=== PATIENT | male | born 1945 | race Hispanic/Latino ===

== ENCOUNTER 2020-10-03 13:36 | Emergency (ER) | payer MEDICARE, BC ==
[~2020-10-03] VITALS: Ht 177.8 cm; Wt 98.0 kg
[~2020-10-03 13:36] MED LIST: ARMOUR THYROID30 MG PO; ATENOLOL25 MG PO; PEPCID40 MG; PLAVIX75 MG PO; PRAVACHOL20 MG PO; RAMIPRIL2.5 MG PO
== END 2020-10-03 15:48 | disposition home or self-care (01) ==
LOC: FSED 13:57
DX: M79.602 Pain in left arm (principal); M79.89 Other specified soft tissue disorders; E78.5 Hyperlipidemia, unspecified; K21.9 Gastro-esophageal reflux disease without esophagitis; E78.00 Pure hypercholesterolemia, unspecified; Z86.73 Personal history of transient ischemic attack (TIA), and cerebral infarction without residual deficits
CPT/HCPCS: 93971; 99284

== ENCOUNTER 2021-03-09 14:28 | Emergency (ER) | payer MEDICARE, BC ==
[~2021-03-09] VITALS: Ht 177.8 cm; Wt 97.5 kg
[2021-03-09] MEDS ORDERED: LIDOCAINE 1% 5ML-MPF INJ ONE (14:45)
[2021-03-09] MEDS ORDERED: CEFTRIAXONE SOD 1 GM VIAL IM ONE (14:45)
[2021-03-09] MEDS ORDERED: IBUPROFEN 200 MG TAB PO ONE (14:45)
[2021-03-09] MEDS ORDERED: ONDANSETRON HCL 4 MG ORAL DISINTEGRATING TAB PO ONE (14:45)
[2021-03-09] MEDS ORDERED: CIPROFLOX-DEXA7.5 ML LEFT EAR (14:46)
[2021-03-09] MEDS ORDERED: IBUPROFEN IB200 MG PO (14:46)
[2021-03-09] MEDS ORDERED: CLEOCIN HCL300 MG PO (14:46)
[2021-03-09] MEDS ORDERED: CLINDAMYCIN PHOS 600 MG/ 4 ML VIAL IM ONE (15:00)
[2021-03-09] MEDS ORDERED: ONDANSETRON HCL 4 MG ORAL DISINTEGRATING TAB ONE (15:18)
[2021-03-09] MEDS ORDERED: IBUPROFEN 600 MG TAB ONE (15:19)
[2021-03-09] MEDS ORDERED: CLINDAMYCIN PHOS 300MG/2ML VIAL ONE (15:19)
== END 2021-03-09 16:20 | disposition home or self-care (01) ==
LOC: FSED 14:45
DX: H66.91 Otitis media, unspecified, right ear (principal); I10 Essential (primary) hypertension; E78.5 Hyperlipidemia, unspecified; K21.9 Gastro-esophageal reflux disease without esophagitis; E78.00 Pure hypercholesterolemia, unspecified; Z86.73 Personal history of transient ischemic attack (TIA), and cerebral infarction without residual deficits
CPT/HCPCS: 99282; Q0162

== ENCOUNTER 2025-01-21 12:25 | Emergency (ER) | payer MEDICARE, BC ==
[~2025-01-21] VITALS: Ht 175.3 cm; Wt 96.2 kg
[~2025-01-21 12:25] MED LIST changes: +CIPROFLOX-DEXA7.5 ML LEFT EAR; +CLEOCIN HCL300 MG PO; +IBUPROFEN IB200 MG PO
[2025-01-21 12:40] VITALS: PULSE 69; RESP 20; TEMP 97.9
[2025-01-21] MEDS ORDERED: AZITHROMYCIN250 MG PO (13:00)
[2025-01-21 13:26] VITALS: BP 148/67; PULSE 78; RESP 18; TEMP 97.7; O2SAT 96
== END 2025-01-21 13:24 | disposition home or self-care (01) ==
LOC: FSED 12:32
DX: R05.9 Cough, unspecified (principal); J40 Bronchitis, not specified as acute or chronic; R09.89 Other specified symptoms and signs involving the circulatory and respiratory systems; Z11.52 Encounter for screening for COVID-19
CPT/HCPCS: 0223U; 83518; 87400; 99284